=== PATIENT | female | born 1945 | race Caucasian/White ===

== ENCOUNTER 2019-03-09 08:45 | Inpatient (IN) ==
[~2019-03-09 08:45] MED LIST: Total Joint Mixture (50 ml) IR ONE
[2019-03-09] MEDS ORDERED: Ringers Solution, Lactated 1,000 ML IVC SCH (09:00)
[2019-03-09] MEDS ORDERED: CeFAZolin Syr 2,000MG/20 ML 2,000 MG/20 ML SYRINGE IVPB ONE (09:00)
[2019-03-09] MEDS ORDERED: *HR* Promethazine 25 MG/ML VIAL IVP PRN ×2 (09:34→15:46)
[2019-03-09] MEDS ORDERED: Acetaminophen IV 1,000 MG/100 ML INFUS..BTL IVPB ONE (09:34)
[2019-03-09] MEDS ORDERED: *HR* Meperidine 25 MG/ML SYRINGE IVP PRN (09:34)
[2019-03-09] MEDS ORDERED: *HR* Midazolam HCl 2 MG/2 ML VIAL IVP PRN (09:34)
[2019-03-09] MEDS ORDERED: Famotidine 20 MG/2 ML VIAL IVP ONE (09:34)
[2019-03-09] MEDS ORDERED: *HR* FentaNYL (PF) 100 MCG/2 ML VIAL IVP PRN (09:34)
[2019-03-09] MEDS ORDERED: *HR* OxyCODONE Immed Rel 5 MG TABLET PO PRN (09:34)
[2019-03-09] MEDS ORDERED: *HR* FentaNYL (PF) 100 MCG/2 ML VIAL ONE (10:39)
[2019-03-09] MEDS ORDERED: Ethanol\\Acetic Acid\\Na Ace\\Ben 1,000 ML IRRIG.SOLN IR ONE (10:56)
[2019-03-09] MEDS ORDERED: ROPIVACAINE/PF/NS 0.25% 1 EACH SYRINGE INTRAART ONE (10:58)
[2019-03-09] MEDS ORDERED: *HR* Midazolam HCl 2 MG/2 ML VIAL ONE (11:27)
[2019-03-09] MEDS ORDERED: *HR* Propofol 200 MG/20 ML VIAL IVP ONE (11:33)
[2019-03-09] MEDS ORDERED: Tranexamic Acid 1,000 MG/10 ML VIAL ONE (11:37)
[2019-03-09] MEDS ORDERED: *HR* PHENYLEPHRINE 1,000 MCG/10 ML SYRINGE IVP ONE (11:42)
[2019-03-09] MEDS ORDERED: EPHEDrine 50 MG/ML VIAL ONE (11:42)
[2019-03-09] MEDS ORDERED: *HR* HYDROMORPHONE 2 MG/ML VIAL ONE (11:50)
[2019-03-09] MEDS ORDERED: Lidocaine -MPF 2% 2 ML VIAL ONE (11:56)
[2019-03-09] MEDS ORDERED: Dexamethasone 4 MG/ML VIAL ONE (12:01)
[2019-03-09] MEDS ORDERED: Ketorolac 30 MG/ML VIAL ONE (12:23)
[2019-03-09] MEDS ORDERED: Ondansetron 4 MG/2 ML VIAL ONE (12:25)
[2019-03-09] MEDS: *HR* HYDROmorphone (PF) 1 MG/ML SYRINGE IVP PRN ×2 (13:50→13:55)
[2019-03-09 15:36] LABS: Hematocrit 41.7 % (35.3-44.9); Hemoglobin 14.6 g/dL (11.5-15.4)
[2019-03-09] MEDS ORDERED: Sennosides 8.6 MG TABLET PO PRN (15:46)
[2019-03-09] MEDS ORDERED: Naloxone 0.4 MG/ML INJ IVP PRN (15:46)
[2019-03-09] MEDS ORDERED: Ondansetron 4 MG/2 ML VIAL IVP PRN (15:46)
[2019-03-09] MEDS ORDERED: Temazepam 15 MG CAPSULE PO PRN (15:46)
[2019-03-09] MEDS ORDERED: MOM Conc 10 ML UD.LIQ PO PRN (15:46)
[2019-03-09] MEDS: Ascorbic Acid 500 MG TABLET PO SCH (16:54)
[2019-03-09] MEDS ORDERED: Acetaminophen IV 1,000 MG/100 ML INFUS..BTL IVPB SCH (18:00)
[2019-03-09] MEDS: Ringers Solution, Lactated 1,000 ML IVC SCH (20:14)
[2019-03-10] MEDS: Ringers Solution, Lactated 1,000 ML IVC SCH (04:59)
[2019-03-10] MEDS: *HR* OxyCODONE Immed Rel 5 MG TABLET PO PRN ×4 (08:11→21:35)
[2019-03-10] MEDS: Ascorbic Acid 500 MG TABLET PO SCH ×2 (08:12→16:16)
[2019-03-10] MEDS: Multivit/Ca/Min/Fe/FA 1 TAB TABLET PO SCH (08:12)
[2019-03-10 09:49] LABS: Basophils % 0.1 %; Hematocrit 39.8 % (35.3-44.9); Hemoglobin 13.1 g/dL (11.5-15.4); Immature Granulocytes % 0.4 % (0-4); Lymphocytes # 1.3 K/mcL (0.6-4.6); Lymphocytes % 11.9 %; Mean Corpuscular HGB Conc 32.9 g/dL (31.6-35.5); Mean Corpuscular Hemoglobin 30.4 pg (28.0-33.3); Mean Corpuscular Volume 92.3 fL (83.0-100.0); Mean Platelet Volume 9.4 fL (9.4-12.4); Monocytes # 1.1 K/mcL (0.0-1.3); Monocytes % 9.6 %; Neutrophils # 8.6 K/mcL (1.6-8.9); Platelet Count 197 K/mcL (140-400); Red Blood Count 4.31 M/mcL (3.82-4.97); Red Cell Distribution Width 12.7 % (11.5-14.5)
[2019-03-10] MEDS: Aspirin Enteric Coated 81 MG Tablet PO SCH (16:16)
[2019-03-10 17:50] LABS: BUN/Creatinine Ratio 26 (6-26); Blood Urea Nitrogen 25 mg/dL (8-23); Calcium 8.8 mg/dL (8.6-10.3); Carbon Dioxide 25 mEq/L (23-29); Chloride 101 mEq/L (98-107); Glucose 143 mg/dL (70-105); Osmolality,Calculated 285 (280-300); Potassium 4.2 mEq/L (3.5-5.1); Sodium 134 mEq/L (136-145); eGFR For African Americans > 60 (> 60); eGFR For Non-African Americans 56 (> 60)
[2019-03-11] MEDS: HYDROcodone BIT/Homatropine 5 MG TABLET PO PRN ×4 (00:29→21:32)
[2019-03-11 03:08] LABS: Basophils % 0.2 %; Eosinophils # 0.1 K/mcL (0.0-0.6); Eosinophils % 0.9 %; Hematocrit 37.2 % (35.3-44.9); Hemoglobin 12.6 g/dL (11.5-15.4); Immature Granulocytes % 0.4 % (0-4); Lymphocytes # 2.6 K/mcL (0.6-4.6); Lymphocytes % 26.4 %; Mean Corpuscular HGB Conc 33.9 g/dL (31.6-35.5); Mean Corpuscular Hemoglobin 30.8 pg (28.0-33.3); Mean Platelet Volume 10.1 fL (9.4-12.4); Monocytes % 9.9 %; Neutrophils # 6.1 K/mcL (1.6-8.9); Platelet Count 173 K/mcL (140-400); Red Blood Count 4.09 M/mcL (3.82-4.97); Red Cell Distribution Width 12.9 % (11.5-14.5); Segmented Neutrophils % 62.2 %; White Blood Count 9.8 K/mcL (4.3-11.1)
[2019-03-11 03:21] LABS: BUN/Creatinine Ratio 26 (6-26); Blood Urea Nitrogen 23 mg/dL (8-23); Calcium 8.5 mg/dL (8.6-10.3); Carbon Dioxide 26 mEq/L (23-29); Chloride 105 mEq/L (98-107); Glucose 112 mg/dL (70-105); Osmolality,Calculated 286 (280-300); Potassium 4.3 mEq/L (3.5-5.1); Sodium 136 mEq/L (136-145); eGFR For African Americans > 60 (> 60); eGFR For Non-African Americans > 60 (> 60)
[2019-03-11] MEDS: *HR* OxyCODONE Immed Rel 5 MG TABLET PO PRN ×3 (05:23→14:27)
[2019-03-11] MEDS: Ascorbic Acid 500 MG TABLET PO SCH ×2 (07:53→16:39)
[2019-03-11] MEDS: Multivit/Ca/Min/Fe/FA 1 TAB TABLET PO SCH (07:53)
[2019-03-11] MEDS: Aspirin Enteric Coated 81 MG Tablet PO SCH (07:53)
[2019-03-12] MEDS: HYDROcodone BIT/Homatropine 5 MG TABLET PO PRN (03:56)
[2019-03-12] MEDS: Multivit/Ca/Min/Fe/FA 1 TAB TABLET PO SCH (10:13)
[2019-03-12] MEDS: *HR* OxyCODONE Immed Rel 5 MG TABLET PO PRN ×2 (10:24→15:42)
[2019-03-12] MEDS: Ascorbic Acid 500 MG TABLET PO SCH ×2 (10:25→15:41)
[2019-03-12] MEDS: Aspirin Enteric Coated 81 MG Tablet PO SCH (10:25)
[2019-03-13 07:28] VITALS: BP 158/87
[2019-03-13] MEDS: Ascorbic Acid 500 MG TABLET PO SCH (08:22)
[2019-03-13] MEDS: Aspirin Enteric Coated 81 MG Tablet PO SCH (08:23)
[2019-03-13] MEDS: Multivit/Ca/Min/Fe/FA 1 TAB TABLET PO SCH (08:23)
== END 2019-03-13 10:21 | DRG 470 ==
LOC: SAMDAY 08:45 → 3NENU 14:39
PROVIDERS: ADMIT Orthopaedic Surgery; ATTEND Orthopaedic Surgery